=== PATIENT | male | born 1940 | race Hispanic/Latino ===

== ENCOUNTER 2017-02-08 11:53 | Day surgery (SDC) | payer MEDICARE ==
[2017-02-01 13:56] VITALS: BMI 22.8
[2017-02-08] MEDS ORDERED: Propofol 10 mg/ml Inj (20 ML) ONE (13:18)
[2017-02-08] MEDS ORDERED: Sodium Chloride 0.9% 1,000 ML IV SCH (14:00)
[2017-02-08 14:25] VITALS: RESP 18
[2017-02-08 14:38] VITALS: BP 116/81; PULSE 57; TEMP 97.8; O2SAT 99
== END 2017-02-08 15:17 | disposition home or self-care (01) ==
LOC: ENDO 11:53
PROVIDERS: ATTEND Internal Medicine
DX: K62.7 Radiation proctitis (principal); D12.0 Benign neoplasm of cecum; K57.30 Diverticulosis of large intestine without perforation or abscess without bleeding; K62.5 Hemorrhage of anus and rectum; K64.8 Other hemorrhoids; Y84.2 Radiological procedure and radiotherapy as the cause of abnormal reaction of the patient, or of later complication, without mention of misadventure at the time of the procedure; Z85.46 Personal history of malignant neoplasm of prostate
CPT/HCPCS: 45382; 45385; 88305; J2704; J7040 ×2